=== PATIENT | female | born 1975 | race Caucasian/White ===

== ENCOUNTER 2024-03-31 17:00 | Emergency (ER) | payer MEDICAID, SELFPAY ==
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
[2024-03-31] MEDS: BACITRACIN OINT 1 GM PACKET TOP (17:29)
[2024-03-31 17:30] VITALS: PULSE 68; RESP 18; O2SAT 89
[2024-03-31 17:37] VITALS: BP 149/84; PULSE 65; RESP 16; TEMP 36.6; O2SAT 98
== END 2024-03-31 17:37 | disposition left against medical advice (07) ==
LOC: SERX 17:34
PROVIDERS: Emergency Provider Emergency Medicine; PCP Internal Medicine
DX: T22.011A Burn of unspecified degree of right forearm, initial encounter (principal); E11.9 Type 2 diabetes mellitus without complications; I10 Essential (primary) hypertension; E78.5 Hyperlipidemia, unspecified; Z53.29 Procedure and treatment not carried out because of patient's decision for other reasons; X08.8XXA Exposure to other specified smoke, fire and flames, initial encounter
CPT/HCPCS: 99281; A9270

== ENCOUNTER → 2024-04-07 | Outpatient (CLI) | payer MEDICAID, SELFPAY ==
--- NOTE | 2024-04-07 14:00 | XR_ITS ---
Examination: Abdomen sonogram, complete Date and time of exam: April 07, 2024 1419 hours INDICATIONS: Right upper abdominal pain mid abdominal pain beginning 6 months ago. Technique: Multiple real-time grayscale transabdominal sonographic images of the abdomen have been obtained. Findings: Absent gallbladder Common bile duct 0.8 cm no stones Pancreatic head 1.6 cm Aorta not enlarged Liver 19.0 cm fatty liver Normal hepatopedal portal venous oh Patent IVC Right kidney 10.3 cm renal cortex 1.0 cm Hyperechoic mass with shadowing in the upper pole 18 x 21 x 21 mm Left kidney 10.6 cm renal cortex 1.6 cm Multiple cysts, the largest in the upper pole 13 mm No hydronephrosis Spleen 10.9 cm IMPRESSION: Recommend CTA abdomen pelvis post contrast follow-up to exclude 18 x 21 x 21 mm angiomyolipoma upper pole right kidney
== END | disposition home or self-care (01) ==
LOC: CDIM 13:55
PROVIDERS: Referring Provider Internal Medicine Gastroenterology; Visit Provider Internal Medicine Gastroenterology
DX: R10.9 Unspecified abdominal pain (principal)
CPT/HCPCS: 76700

== ENCOUNTER 2024-06-11 13:15 | Emergency (ER) | payer MEDICAID, SELFPAY ==
[2024-06-11 13:16] VITALS: BMI 38.7
[2024-06-11 13:29] VITALS: BP 116/73; PULSE 61; RESP 18; TEMP 36.8; O2SAT 95
--- NOTE | 2024-06-11 13:32 | XR_ITS ---
Examination: Wrist, right 3 views Technique: Wrist AP, oblique, lateral 3 views Date and time of exam: June 11, 2024 1358 hrs. Indications: Onset right wrist pain today No fracture No dislocation No foreign body Impression: No acute fracture
--- NOTE | 2024-06-11 13:32 | PD.EDHAND ---
Upper Extremity Injury RME/HPI General Chief Complaint: Hand/Wrist Problems Stated Complaint: UNABLE TO MOVE RIGHT WRIST TODAY,UNKNOWN INJURY Time Seen by Provider: 06/11/24 13:31 Arrival date/time: 06/11/24 13:15 49-year-old female presents department today complaints of right wrist pain patient reports no definite injury but she remembers opening a Gatorade yesterday which caused her to develop pain in the right wrist Limitations: no limitations Related Data Home Medications ?Medication ?Instructions ?Recorded ?Confirmed lisinopril 20 mg tablet 20 mg PO QDAY #0 tabs 10/10/14 05/19/20 mirtazapine 45 mg tablet 45 mg PO HS ##30 03/24/17 05/19/20 sitagliptin phosphate 100 mg 100 mg PO QDAY ##30 03/24/17 05/19/20 tablet (Januvia) aspirin 81 mg tablet,delayed 81 mg PO QDAY 04/16/18 05/19/20 release (Aspir-Low) atorvastatin 40 mg tablet 80 mg PO QDAY 04/16/18 05/19/20 fluoxetine 20 mg capsule (Prozac) 60 mg PO QDAY 04/16/18 05/19/20 metformin 500 mg tablet,extended 500 mg PO QPM 04/16/18 05/19/20 release 24 hr chlorthalidone 50 mg tablet 50 mg PO QDAY 04/24/18 05/19/20 fluticasone furoate 200 1 inh inhalation QDAY 04/24/18 05/19/20 mcg/actuation blister powder for inhalation (Arnuity Ellipta) levothyroxine 50 mcg tablet 50 mcg PO QDAY 04/24/18 05/19/20 hydrocodone 10 mg-acetaminophen 1 tab PO Q8H PRN Pain 05/19/20 05/19/20 325 mg tablet Previous Rx's ?Medication ?Instructions ?Recorded potassium chloride 20 mEq 20 meq PO QDAY #7 tabs 04/24/18 tablet,extended release(part/cryst) meloxicam 7.5 mg tablet 7.5 mg PO QDAY #30 tabs 07/23/18 fluconazole 150 mg tablet 150 mg PO .x1 #1 tab 12/12/19 (Diflucan) nystatin 100,000 unit/gram topical 1 applic topical BID #60 grams 12/12/19 cream cephalexin 500 mg capsule 500 mg PO QID #28 caps 05/19/20 ibuprofen 800 mg tablet 800 mg PO TID PRN pain #30 tabs 01/23/21 hydrocodone 5 mg-acetaminophen 325 1 tab PO TID PRN pain #10 tabs 09/18/21 mg tablet loperamide 2 mg capsule (Imodium 2 mg PO QID PRN loose stool #10 09/18/21 A-D) caps Allergies Allergy/AdvReac Type Severity Reaction Status Date / Time morphine AdvReac Severe Palpitation Verified 06/11/24 13:18 s Review of Systems Review of Systems Systems Reviewed: All systems reviewed, normal except as documented Constitutional Constitutional: Reports system reviewed and no additional complaints, except as documented, Denies fever(s) and Denies headache(s) Eyes Eyes: Reports system reviewed and no additional complaints, except as documented and Denies blurry vision ENT Ears, Nose, Mouth, and Throat: Reports system reviewed and no additional complaints, except as documented, Denies headache(s), Denies nasal congestion and Denies nasal discharge Cardiovascular Cardiovascular: Reports system reviewed and no additional complaints, except as documented, Denies chest pain and Denies dyspnea Respiratory Respiratory: Reports system reviewed and no additional complaints, except as documented, Denies chest congestion, Denies cough and Denies dyspnea Gastrointestinal Gastrointestinal: Reports system reviewed and no additional complaints, except as documented and Denies abdominal pain Musculoskeletal Musculoskeletal: Reports system reviewed and no additional complaints, except as documented, Reports arthralgias, Denies deformity and Denies joint swelling Integumentary/Breasts Skin/Breast: Reports system reviewed and no additional complaints, except as documented and Denies rash Neurologic Neurologic: Reports system reviewed and no additional complaints, except as documented, Reports as per HPI and Denies headache(s) Past Medical History Past Medical History NEUROLOGIC: Positive Cerebrovascular Accident and Seizures CARDIAC: Positive Hypercholesterolemia and Hypertension; Negative Cardiac Disorders or Congestive Heart Failure RESPIRATORY: Positive Chronic Obstructive Pulmonary Disease (COPD), Asthma and Sleep Apnea GENITOURINARY: Negative Renal Disease ENDOCRINE: Positive Diabetes Mellitus Type 2; Negative Diabetes Mellitus Type 1 HEMATOLOGIC: Negative Sickle Cell Disease PSYCHO/SOCIAL: Positive Anxiety Surgical History SURGICAL: Positive Section Social History SMOKING STATUS: Current every day smoker SUBSTANCE USE: does not use ED Exam General Limitations: Present no limitations General appearance: Present alert and in no apparent distress Head Head exam: Present atraumatic, normocephalic and normal inspection Eye Eye exam: Present normal appearance, PERRL and EOMI ENT ENT exam: Present normal exam, normal oropharynx and mucous membranes moist Neck Neck exam: Present normal inspection, full ROM and trachea midline Chest Chest inspection: Present normal inspection and symmetric chest wall rise Respiratory Respiratory exam: Present normal lung sounds bilaterally Cardiovascular Cardiovascular exam: Present regular rate, normal rhythm and normal heart sounds Abdominal Exam Abdominal exam: Present soft and normal bowel sounds Extremities Exam Extremities exam: Present full ROM, tenderness (Right hand pain) and normal capillary refill; Absent joint swelling Back Exam Back exam: Present normal inspection and full ROM Neurological Exam Neurological exam: Present alert, oriented X3 and CN II-XII intact Psychiatric Psychiatric exam: Present normal affect and normal mood Skin Skin exam: Present warm, dry, intact and normal color Course Quality Measures none Orders Category Date Time Status XR wrist comp RT min 3V Stat Exams 06/11/24 13:32 Completed Vital Signs Vital signs: Vital Signs Temperature 98.2 F 06/11/24 13:29 Pulse Rate 61 06/11/24 13:29 Respiratory Rate 18 06/11/24 13:29 Blood Pressure 116/73 06/11/24 13:29 Pulse Oximetry (%) 95 06/11/24 13:29 Oxygen Delivery Method Room Air 06/11/24 13:29 O2 saturation 95% room air within normal notes Extremity Injury MDM Narrative MDM Narrative:: 49-year-old female presents department today complaints of right wrist pain patient reports no definite injury but she remembers opening a Gatorade yesterday which caused her to develop pain in the right wrist On exam patient is no bruising or swelling patient does have full range of motion no deformity noted X-ray obtained no acute fracture dislocation noted Patient discharged home in no distress to follow-up with primary care doctor in the next 24 to 48 hours and for any worsening symptoms to return to the ER immediately Patient data External records reviewed:: [facility] previous records Clinical information provided by:: patient Social determinants that could affect healthcare access:: none Patient has the following chronic illnesses:: None How is presenting disease/condition affected by chronic disease/condition?: no chronic disease Evaluation data The following diagnostics were reviewed and interpreted by me:: radiology exam(s) Lab and/or radiology exams considered but not ordered:: Radiology obtain Interpretation Summary: Reviewed by me Medications / Prescriptions Medications or Prescriptions considered but not ordered:: Given Medication administrations:: Given Consultations Consultation(s) initiated? (list below): No Diagnosis Upper Extremity Injury Differential Diagnosis: sprain and strain of wrist and fracture of wrist Most likely diagnosis given after review of the tests above:: Wrist sprain Admission Indicated Admission indicated?: not indicated Admission Request Was there a request for admission?: No Disposition Plan Disposition Plan: Discharge Discharge Attestation Discharge Attestation: The patient and all family members were given an opportunity to ask questions and understood the discharge instructions. Discharge instructions specifically effects, indications for sooner follow up or return to the emergency department, and the expected course of current diagnosis. Patient condition: Stable Discharge Plan Plan Patient Disposition: HOME (Self Care) Disposition Comment: Stable Prescriptions/Referrals Prescriptions/Med Rec: No Action lisinopril 20 MG tablet 20 mg PO QDAY Qty: 0 mirtazapine 45 MG tablet 45 mg PO HS Qty: 30 Januvia 100 MG tablet 100 mg PO QDAY Qty: 30 chlorthalidone 50 mg Tablet 50 mg PO QDAY levothyroxine 50 mcg Tablet 50 mcg PO QDAY Arnuity Ellipta 200 mcg/actuation Blister With Device 1 inh INHALATION QDAY potassium chloride 20 mEq tablet,ER particles/crystals 20 meq PO QDAY Qty: 7 0RF ibuprofen 800 mg tablet 800 mg PO TID PRN (Reason: pain) Qty: 30 0RF atorvastatin 40 mg Tablet 80 mg PO QDAY aspirin [Aspir-Low] 81 mg Tablet,Delayed Release (Dr/Ec) 81 mg PO QDAY fluoxetine [Prozac] 20 mg Capsule 60 mg PO QDAY metformin 500 mg Tablet Extended Release 24 Hr 500 mg PO QPM meloxicam 7.5 mg tablet 7.5 mg PO QDAY Qty: 30 0RF fluconazole [Diflucan] 150 mg tablet 150 mg PO .x1 Qty: 1 0RF nystatin 100,000 unit/gram cream 1 applic topical BID Qty: 60 0RF hydrocodone-acetaminophen [[place]] 10-325 mg Tablet 1 tab PO Q8H PRN (Reason: Pain) cephalexin 500 mg capsule 500 mg PO QID Qty: 28 0RF hydrocodone-acetaminophen 5-325 mg tablet 1 tab PO TID MDD 3 PRN (Reason: pain) Qty: 10 0RF loperamide [Imodium A-D] 2 mg capsule 2 mg PO QID PRN (Reason: loose stool) Qty: 10 0RF Rx Instructions: No more than 8 mg per 24 hour period Referrals: Jacqui Bustillos MD [Primary Care Provider] - In 1 week Problem List Clinical Impression: Acute wrist pain Patient/Caregiver Discharge Instructions Education Materials: ED Arthralgia Additional Instructions: Please follow up with your primary care doctor in the next 24-48hrs for any worsening symptoms return here immediately Print Language: Macedonian Stand Alone Forms: Mami Award Info., Patient Portal Info Letter PA/RANGE MOUNTER Supervising Physician PA/RANGE MOUNTER Supervising Physician: Dr Powell
[2024-06-11 14:46] VITALS: BP 131/75; PULSE 63; RESP 18; TEMP 36.8; O2SAT 96
== END 2024-06-11 14:47 | disposition home or self-care (01) ==
PROVIDERS: Emergency Provider Emergency Medicine; PCP Internal Medicine
DX: M25.531 Pain in right wrist (principal)
CPT/HCPCS: 73110; 99283

== ENCOUNTER 2024-06-29 06:17 | Emergency (ER) | payer MEDICAID, SELFPAY ==
[2024-06-29] VITALS (17 sets, daily range): BP systolic 81–127; BP diastolic 64–107; PULSE 102–138; RESP 19–33; TEMP 36.7–38.1; O2SAT 89–95; BMI 44.9
--- NOTE | 2024-06-29 06:57 | XR_ITS ---
Examination: CT abdomen with intravenous contrast CT pelvis with intravenous contrast 2-D coronal reconstructions 2-D sagittal reconstructions Date and time of exam:June 29, 2024 1049 hours INDICATIONS: Generalized abdominal pain and tenderness today COMPARISON: September 18, 2021.. CTDI: vol (mGy) 13.3 DLP: (mGycm) 800 Technique: Multiple axial sections of the abdomen and pelvis have been obtained. 64 slice high-resolution scanner used. 3 mm axial sections have been obtained, post intravenous injection 60 cc [id number] 2-D sagittal, coronal reconstructions obtained. Low dose protocols were performed. One or more of the following dose reduction techniques were used; automated exposure control, adjustment of the mA and/or KV according to patient size, use of iterative reconstruction technique. Findings: Cirrhosis, liver irregular in contour Mild ascites Absent gallbladder Spleen not enlarged No pancreatic mass Significant scarring right kidney Aorta normal size Fluid distended small bowel loops in the left abdomen Diffuse wall thickening involving the colon Atrophic uterus Bladder intact IMPRESSION: Cirrhosis Mild ascites Significant scarring right kidney Hepatic colopathy enteropathy pattern
--- NOTE | 2024-06-29 06:59 | PD.EDABDPN ---
ED Abdominal Pain RME/HPI General Chief Complaint: Abdominal Pain Stated complaint: ABDOMINAL PAIN, VOMITING AND DIARRHEA Time seen by provider: 06/29/24 06:52 Arrival date/time: 06/29/24 06:17 Limitations: no limitations RME / HPI RME / HPI narrative: 49 year old female with history lupus, hypertension, diabetes, COPD presents to the ED for evaluation of intermittent abdominal pain beginning 3 days ago. Describes pain as aching in sensation that is located everywhere , rating 8/10 in severity. Accompanied by nausea, nonbloody vomiting, and nonbloody diarrhea. States in the last 24 hours she is vomiting every hour and has had 3 episodes of diarrhea. Mentioned she had experienced similar n/v/d years ago and diagnosed with the stomach flu although pain was not as severe. No chronic GI history reported. Denies fevers, chills, chest pain, cough, shortness of breath, or urinary symptoms. Abdominal surgeries include cholecystectomy. Related Data Home Medications ?Medication ?Instructions ?Recorded ?Confirmed lisinopril 20 mg tablet 20 mg PO QDAY #0 tabs 10/10/14 05/19/20 mirtazapine 45 mg tablet 45 mg PO HS ##30 03/24/17 05/19/20 sitagliptin phosphate 100 mg 100 mg PO QDAY ##30 03/24/17 05/19/20 tablet (Januvia) aspirin 81 mg tablet,delayed 81 mg PO QDAY 04/16/18 05/19/20 release (Aspir-Low) atorvastatin 40 mg tablet 80 mg PO QDAY 04/16/18 05/19/20 fluoxetine 20 mg capsule (Prozac) 60 mg PO QDAY 04/16/18 05/19/20 metformin 500 mg tablet,extended 500 mg PO QPM 04/16/18 05/19/20 release 24 hr chlorthalidone 50 mg tablet 50 mg PO QDAY 04/24/18 05/19/20 fluticasone furoate 200 1 inh inhalation QDAY 04/24/18 05/19/20 mcg/actuation blister powder for inhalation (Arnuity Ellipta) levothyroxine 50 mcg tablet 50 mcg PO QDAY 04/24/18 05/19/20 hydrocodone 10 mg-acetaminophen 1 tab PO Q8H PRN Pain 05/19/20 05/19/20 325 mg tablet Previous Rx's ?Medication ?Instructions ?Recorded potassium chloride 20 mEq 20 meq PO QDAY #7 tabs 04/24/18 tablet,extended release(part/cryst) meloxicam 7.5 mg tablet 7.5 mg PO QDAY #30 tabs 07/23/18 fluconazole 150 mg tablet 150 mg PO .x1 #1 tab 12/12/19 (Diflucan) nystatin 100,000 unit/gram topical 1 applic topical BID #60 grams 12/12/19 cream cephalexin 500 mg capsule 500 mg PO QID #28 caps 05/19/20 ibuprofen 800 mg tablet 800 mg PO TID PRN pain #30 tabs 01/23/21 hydrocodone 5 mg-acetaminophen 325 1 tab PO TID PRN pain #10 tabs 09/18/21 mg tablet loperamide 2 mg capsule (Imodium 2 mg PO QID PRN loose stool #10 09/18/21 A-D) caps ciprofloxacin HCl 500 mg tablet 500 mg PO BID 5 days #10 tabs 06/29/24 (Cipro) loperamide 2 mg capsule (Imodium 2 mg PO Q6H PRN loose stool #14 06/29/24 A-D) caps metronidazole 500 mg tablet 500 mg PO BID #10 tabs 06/29/24 metronidazole 500 mg tablet 500 mg PO BID #20 tabs 06/29/24 ondansetron 4 mg disintegrating 4 mg PO Q8H 4 days #14 tabs 06/29/24 tablet ondansetron 4 mg disintegrating 4 mg PO TID PRN nausea and 06/29/24 tablet vomiting 4 days #30 tabs polyethylene glycol 3350 17 gram 17 g PO BID #30 ea 06/29/24 oral powder packet (Miralax) sulfamethoxazole 800 1 tab PO Q12H #20 tabs 06/29/24 mg-trimethoprim 160 mg tablet (Bactrim DS) Allergies Allergy/AdvReac Type Severity Reaction Status Date / Time morphine AdvReac Severe Palpitation Verified 06/11/24 13:18 s Review of Systems Review of Systems Narrative Review of Systems: GEN: No fever, no chills, no weight loss EYES: No discharge, no visual changes, no pain HEENT: No ear pain, no congestion, no sore throat PULM: No shortness of breath, no cough, no congestion CV: No chest pain, no dyspnea on exertion, no palpitations GI: +n/v/d, + pain, no constipation : No frequency, no urgency, no dysuria MUSC/SKEL: No joint pain, no back pain SKIN: No rash NEURO: No weakness, no headache Past Medical History Past Medical History NEUROLOGIC: Positive Cerebrovascular Accident and Seizures CARDIAC: Positive Hypercholesterolemia and Hypertension RESPIRATORY: Positive Chronic Obstructive Pulmonary Disease (COPD), Asthma and Sleep Apnea ENDOCRINE: Positive Diabetes Mellitus Type 2 PSYCHO/SOCIAL: Positive Anxiety Surgical History SURGICAL: Positive Section Social History SMOKING STATUS: Current every day smoker SUBSTANCE USE: does not use ED Exam General Limitations: Present no limitations General appearance: Present alert Head Head exam: Present atraumatic, normocephalic and normal inspection Eye Eye exam: Present normal appearance, PERRL and EOMI ENT ENT exam: Present normal exam, normal oropharynx and mucous membranes moist Neck Neck exam: Present normal inspection, full ROM and trachea midline Chest Chest inspection: Present normal inspection and symmetric chest wall rise Respiratory Respiratory exam: Present normal lung sounds bilaterally Cardiovascular Cardiovascular exam: Present regular rate, normal rhythm and normal heart sounds Abdominal Exam Abdominal exam: Present soft, normal bowel sounds and other (Generalized abdominal tenderness) Extremities Exam Extremities exam: Present normal inspection and full ROM Back Exam Back exam: Present normal inspection and full ROM Neurological Exam Neurological exam: Present alert, oriented X3 and CN II-XII intact Psychiatric Psychiatric exam: Present normal affect and normal mood Skin Skin exam: Present warm, dry, intact and normal color Course Quality Measures none Orders Category Date Time Status CT Screening NOW Care 06/29/24 06:57 Active In and Out Catheter X1 Care 06/29/24 06:55 Completed Insert IV STAT Care 06/29/24 06:[address] abdomen pelvis w con Stat Exams 06/29/24 06:57 Completed Amylase Stat Lab 06/29/24 06:10 Completed CBC Stat Lab 06/29/24 06:10 Completed Comprehensive Metabolic Panel Stat Lab 06/29/24 06:10 Completed Lipase Stat Lab 06/29/24 06:10 Completed Magnesium Stat Lab 06/29/24 06:10 Completed Prothrombin Time with INR Stat Lab 06/29/24 06:10 Completed Urinalysis Stat Lab 06/29/24 09:16 Completed HYDROmorphone INJ [Dilaudid Inj] Med 06/29/24 06:57 Discontinued 1 mg IVP X1 ONE HYDROmorphone INJ [Dilaudid Inj] Med 06/29/24 10:35 Discontinued 1 mg IVP X1 ONE HYDROmorphone INJ [Dilaudid Inj] Med 06/29/24 15:48 Discontinued 1 mg IVP X1 ONE Magnesium Sulfate 4 GM Ivpb [Magnesium Sulfate Ivpb] Med 06/29/24 11:15 Discontinued 4 gm in 50 ml IV X1 Ondansetron Inj [Zofran Inj] Med 06/29/24 06:55 Active 4 mg IV Q1H PRN Potassium Chloride [K-Dur] Med 06/29/24 11:00 Discontinued 40 meq PO Q1H Sodium Chloride 0.9% 1000 ml [Ns] 1,000 ml Med 06/29/24 06:55 Discontinued IV 999 mls/hr cefTRIAXone [Rocephin] 2 gm Med 06/29/24 15:56 Active SODIUM CHLORIDE 0.9% (Popper) [Ns 0.9% (P)] 50 ml IV X1 Vital Signs Vital signs: Vital Signs Temperature 98.0 F 06/29/24 06:22 Pulse Rate 113 H 06/29/24 06:22 Respiratory Rate 20 06/29/24 06:22 Blood Pressure 82/67 L 06/29/24 06:22 Pulse Oximetry (%) 95 06/29/24 06:22 Oxygen Delivery Method Room Air 06/29/24 06:22 Pulse ox is 95% on room air which is adequate. Abdominal Pain MDM MDM Narrative MDM Narrative:: Angelic Mendenhall am scribing for and in the presence of Dr. Bell. 0654: Plan for abdominal CT to rule out acute appendicitis, diverticulitis, pancreatitis. 49 year old female presented to the ED for 3-days of abdominal pain with n/v/d. Labs were reviewed and was given magnesium and potassium. Patient will be discharged home, diagnosed with Gastroenteritis. Will DC patient home with Imodium, Zofran, Cipro, and Flagyl. Patient workup came back negative for CAT scan abdomen pelvis Negative for CBC chemistry for any sort of severe inflammation There is no LYNN UTI Patient was managed with pain medications and IV fluids and antinausea medication Patient be discharged on Zofran and Imodium about adding Cipro and Flagyl to reduce her abdominal symptoms Plan assessment Acute gastroenteritis Plan As above Bactrim and Flagyl instead of Cipro and Flagyl MiraLAX for the possibility of diverticulitis Zofran for the nausea and vomiting Follow-up with your MD Patient data External records reviewed:: [facility] previous records (I reviewed ED visit on 06/11/2024 for wrist pain. ) Clinical information provided by:: patient Social determinants that could affect healthcare access:: none Patient has the following chronic illnesses:: lupus, hypertension, diabetes, COPD How is presenting disease/condition affected by chronic disease/condition?: exacerbated by Evaluation data The following diagnostics were reviewed and interpreted by me:: lab results and radiology exam(s) Lab and/or radiology exams considered but not ordered:: None Interpretation Summary: Ordering Physician: Aranza Bell MD Date of Service: 06/29/24 Procedure(s): CT abdomen pelvis w con Accession Number(s): [id number] cc: Aranza Bell MD; Jacqui Bustillos MD; Alhaji Angelo MD~ Examination: CT abdomen with intravenous contrast CT pelvis with intravenous contrast 2-D coronal reconstructions 2-D sagittal reconstructions Date and time of exam:June 29, 2024 1049 hours INDICATIONS: Generalized abdominal pain and tenderness today COMPARISON: September 18, 2021.. CTDI: vol (mGy) 13.3 DLP: (mGycm) 800 Technique: Multiple axial sections of the abdomen and pelvis have been obtained. 64 slice high-resolution scanner used. 3 mm axial sections have been obtained, post intravenous injection 60 cc [id number] 2-D sagittal, coronal reconstructions obtained. Low dose protocols were performed. One or more of the following dose reduction techniques were used; automated exposure control, adjustment of the mA and/or KV according to patient size, use of iterative reconstruction technique. Findings: Cirrhosis, liver irregular in contour Mild ascites Absent gallbladder Spleen not enlarged No pancreatic mass Significant scarring right kidney Aorta normal size Fluid distended small bowel loops in the left abdomen Diffuse wall thickening involving the colon Atrophic uterus Bladder intact IMPRESSION: Cirrhosis Mild ascites Significant scarring right kidney Hepatic colopathy enteropathy pattern Dictated By: Alhaji Angelo MD Signed By: <Electronically signed by Alhaji Angelo MD in [place]> 06/29/24 1044 Medications / Prescriptions Medications or Prescriptions considered but not ordered:: None Medication administrations:: Medication Administration History Ceftriaxone Sodium 2 gm/ (Sodium Chloride) 50 mls @ 100 mls/hr IV X1 ONE Stop: 06/29/24 16:25 Ondansetron HCl (Ondansetron Inj 2 Mg/Ml Inj 2 Ml) 4 mg IV Q1H PRN PRN Reason: PERSISTENT NAUSEA OR VOMITING Last Admin: 06/29/24 10:58 Dose: 4 mg Documented By: Admin: 06/29/24 07:15 Dose: 4 mg Documented By: SHAD Discontinued Medications Hydromorphone HCl (Hydromorphone Inj 2 Mg/Ml Vial) 1 mg IVP X1 ONE Stop: 06/29/24 06:58 Last Admin: 06/29/24 07:16 Dose: 1 mg Documented By: SHAD Hydromorphone HCl (Hydromorphone Inj 2 Mg/Ml Vial) 1 mg IVP X1 ONE Stop: 06/29/24 10:36 Last Admin: 06/29/24 10:58 Dose: 1 mg Documented By: SHAD Hydromorphone HCl (Hydromorphone Inj 2 Mg/Ml Vial) 1 mg IVP X1 ONE Stop: 06/29/24 15:49 Sodium Chloride (Ns) 1,000 mls @ 999 mls/hr IV .Q1H1M ONE Stop: 06/29/24 07:55 Last Infusion: 06/29/24 08:18 Dose: Infused Documented By: Admin: 06/29/24 07:17 Dose: 999 mls/hr Documented By: SHAD Magnesium Sulfate (Magnesium Sulfate Ivpb) 4 gm in 50 mls @ 12.5 mls/hr IV X1 ONE Stop: 06/29/24 15:14 Last Admin: 06/29/24 12:37 Dose: Not Given Documented By: SHAD Non-Admin Reason: Duplicate Medication on eMAR Potassium Chloride (Potassium Chloride 20 Meq Tabcr) 40 meq PO Q1H JOAQUIN Stop: 06/29/24 13:01 Last Admin: 06/29/24 13:59 Dose: 40 meq Documented By: Admin: 06/29/24 12:35 Dose: 40 meq Documented By: Admin: 06/29/24 11:13 Dose: 40 meq Documented By: SHAD See above Consultations Consultation(s) initiated? (list below): No Diagnosis Differential diagnosis abdominal pain: abdominal pain, acute appendicitis, calculus of kidney, diverticulitis, gastroenteritis and pancreatitis Most likely diagnosis given after review of the tests above:: Gastroenteritis Admission Indicated Admission indicated?: not indicated Admission Request Was there a request for admission?: No Disposition Plan Disposition Plan: Discharge Discharge Attestation Discharge Attestation: The patient and all family members were given an opportunity to ask questions and understood the discharge instructions. Discharge instructions specifically effects, indications for sooner follow up or return to the emergency department, and the expected course of current diagnosis. Patient condition: Stable Discharge Plan Plan Patient Disposition: HOME (Self Care) Patient condition on transfer: Stable Prescriptions/Referrals Prescriptions/Med Rec: New ciprofloxacin HCl [Cipro] 500 mg tablet 500 mg PO BID 5 Days Qty: 10 0RF metronidazole 500 mg tablet 500 mg PO BID Qty: 10 0RF ondansetron 4 mg tablet,disintegrating 4 mg PO Q8H 4 Days Qty: 14 0RF loperamide [Imodium A-D] 2 mg capsule 2 mg PO Q6H PRN (Reason: loose stool) Qty: 14 0RF sulfamethoxazole-trimethoprim [Bactrim DS] 800-160 mg tablet 1 tab PO Q12H Qty: 20 0RF metronidazole 500 mg tablet 500 mg PO BID Qty: 20 0RF polyethylene glycol 3350 [Miralax] 17 gram powder in packet 17 g PO BID Qty: 30 0RF ondansetron 4 mg tablet,disintegrating 4 mg PO TID PRN (Reason: nausea and vomiting) 4 Days Qty: 30 0RF No Action lisinopril 20 MG tablet 20 mg PO QDAY Qty: 0 mirtazapine 45 MG tablet 45 mg PO HS Qty: 30 Januvia 100 MG tablet 100 mg PO QDAY Qty: 30 chlorthalidone 50 mg Tablet 50 mg PO QDAY levothyroxine 50 mcg Tablet 50 mcg PO QDAY Arnuity Ellipta 200 mcg/actuation Blister With Device 1 inh INHALATION QDAY potassium chloride 20 mEq tablet,ER particles/crystals 20 meq PO QDAY Qty: 7 0RF ibuprofen 800 mg tablet 800 mg PO TID PRN (Reason: pain) Qty: 30 0RF atorvastatin 40 mg Tablet 80 mg PO QDAY aspirin [Aspir-Low] 81 mg Tablet,Delayed Release (Dr/Ec) 81 mg PO QDAY fluoxetine [Prozac] 20 mg Capsule 60 mg PO QDAY metformin 500 mg Tablet Extended Release 24 Hr 500 mg PO QPM meloxicam 7.5 mg tablet 7.5 mg PO QDAY Qty: 30 0RF fluconazole [Diflucan] 150 mg tablet 150 mg PO .x1 Qty: 1 0RF nystatin 100,000 unit/gram cream 1 applic topical BID Qty: 60 0RF hydrocodone-acetaminophen [[place]] 10-325 mg Tablet 1 tab PO Q8H PRN (Reason: Pain) cephalexin 500 mg capsule 500 mg PO QID Qty: 28 0RF hydrocodone-acetaminophen 5-325 mg tablet 1 tab PO TID MDD 3 PRN (Reason: pain) Qty: 10 0RF loperamide [Imodium A-D] 2 mg capsule 2 mg PO QID PRN (Reason: loose stool) Qty: 10 0RF Rx Instructions: No more than 8 mg per 24 hour period Referrals: Jacqui Bustillos MD [Primary Care Provider] - In 1 week Problem List Clinical Impression: Gastroenteritis, Urinary tract infectious disease Patient/Caregiver Discharge Instructions Discharge Activity: activity as tolerated Education Materials: Urinary Tract Infections in Women, ED Gastroenteritis, Noninfectious, ED CYSTITIS Female Adult Print Language: Syrian Stand Alone Forms: Mami Award Info., Patient Portal Info Letter
[2024-06-29] MEDS: ONDANSETRON INJ 2 MG/ML INJ 2 ML 4 MG IV ×3 (07:15→16:18)
[2024-06-29] MEDS: HYDROmorphone INJ 2 MG/ML VIAL 1 MG IVP ×3 (07:16→16:18)
[2024-06-29] MEDS: SODIUM CHLORIDE 0.9% 1000 ML 1,000 ML 999 ML IV (07:17)
--- NOTE | 2024-06-29 07:35 | PC.NURSE ---
Patient is alert and oriented, sitting in gurney, noted sweating per patient due to pain. Patient with c/o upper mid abd pain x4 days worsened after eating, now with nausea also. Patient and family updated with plan of care for obtaining CT scan and medicating for pain relief. Patient call light within reach.
[2024-06-29 08:12] LABS: Alanine Aminotransferase 16 U/L (10-49); Albumin, Serum 4.1 gm/dL (3.5-5.0); Albumin/Globulin Ratio 1.4 (1.2-2.2); Alkaline Phosphatase 74 U/L (46-116); Amylase < 20 U/L (30-118); Anion Gap 15 (7-16); Aspartate Amino Transferase 15 U/L (0-34); BUN/Creatinine Ratio 18 Ratio (12-20); Bilirubin,Total 0.9 mg/dL (0.3-1.2); Blood Urea Nitrogen 18 mg/dL (9-23); Calcium 9.2 mg/dL (8.3-10.6); Calcium (Corrected) 9.2 mg/dL (8.5-10.1); Carbon Dioxide 17.9 mMol/L (20.0-31.0); Chloride 106 mMol/L (98-107); Estimated Creatinine Clearance 73.3 mL/min (>60); Globulin 2.9 gm/dL (2.3-3.5); Glucose 130 mg/dL (74-106); Lipase 23 U/L (12-53); Magnesium 1.5 mg/dL (1.6-2.6); Osmolality,Calculated 281 (275-295); Sodium 139 mMol/L (136-145); eGFR > 60 See Note
[2024-06-29 08:13] LABS: Potassium 2.6 mMol/L (3.4-5.1)
--- NOTE | 2024-06-29 08:18 | PC.NURSE ---
RN informed patient of need for UA sample, per patient unable to urinate at this time, RN inquired if ok to obtain in and out catheter and patient refused at this time.
[2024-06-29 08:36] LABS: Basophils # (Auto) 0.1 Thou/mm3 (0.0-0.2); Basophils % (Auto) 0 % (0-2.5); Eosinophils % (Auto) 0 % (0-10); Hematocrit 56.3 % (36.0-46.0); Hemoglobin 19.6 g/dL (12.0-16.0); INR 1.4 (0.9-1.3); Immature Granulocytes % (Auto) 0 % (0-0); Immature Granulocytes Auto 0.06 Thou/mm3 (0.00-0.00); Lymphocytes # (Auto) 0.7 Thou/mm3 (1.0-4.8); Lymphocytes % (Auto) 4 % (10-50); Mean Corpuscular HGB Conc 34.8 g/dl (31.0-37.0); Mean Corpuscular Hemoglobin 30.1 pg (25.0-35.0); Mean Corpuscular Volume 87 fL (80-100); Monocytes # (Auto) 0.6 Thou/mm3 (0.0-0.8); Monocytes % (Auto) 4 % (0-12); Neutrophils # (Auto) 13.3 Thou/mm3 (1.8-7.7); Neutrophils % (Auto) 91 % (37-80); Nucleated Red Blood Cell % 0 /100 WBC (0); Platelet Count 471 Thou/mm3 (140-440); Prothrombin Time 14.9 Seconds (9.0-12.2); RDW Standard Deviation 49.2 fL (36.4-46.3); Red Blood Count 6.51 Miln/mm3 (4.00-5.20); White Blood Count 14.7 Thou/mm3 (3.6-11.0)
[2024-06-29 09:30] LABS: Collection Type, Urine Catheter
[2024-06-29 09:50] LABS: Bacteria,Urine 2+; Bilirubin,Urine Negative (Negative); Blood,Urine Negative (Negative); Clarity,Urine Turbid (Clear/Hazy); Color,Urine Yellow (Lt Yel-Yel); Glucose, Urine Negative (Negative); Hyaline Casts,Urine 2 /hpf (0-1); Ketones,Urine Trace (Negative); Leukocyte Esterase,Urine Negative (Negative); Nitrite,Urine Positive (Negative); Protein,Urine 1+ (Neg - Trace); RBC,Urine 7 /hpf (0-3); Specific Gravity,Urine 1.029 (1.001-1.035); Squamous Epithelial Cell,Urine 1 /hpf (0-5); WBC,Urine 11 /hpf (0-5)
[2024-06-29] MEDS: POTASSIUM CHLORIDE 20 mEq TABCR 40 MEQ PO ×3 (11:13→13:59)
[2024-06-29] MEDS: cefTRIAXone 2 GM in SODIUM CHLORIDE 0.9% (Popper) 50 ML IV (16:19)
[2024-06-29] MEDS: SODIUM CHLORIDE 0.9% 500 ML 500 ML 999 ML IV (17:33)
== END 2024-06-29 18:44 | disposition home or self-care (01) ==
PROVIDERS: Emergency Provider Emergency Medicine; PCP Internal Medicine
DX: K52.9 Noninfective gastroenteritis and colitis, unspecified (principal); N39.0 Urinary tract infection, site not specified; I10 Essential (primary) hypertension; E11.9 Type 2 diabetes mellitus without complications; J44.9 Chronic obstructive pulmonary disease, unspecified
CPT/HCPCS: 36415; 74177; 80053; 81001; 82150; 83690; 83735; 85025; 85610; 87015; 87045; 87046; 87493; 87899; 96361; 96365; 96375; 96376; 99285; A4649; J0696; J1171; J2405; J3475; J7030; J7040; Q9967; A9270

== ENCOUNTER 2024-07-05 01:16 | Emergency (ER) | payer MEDICAID, SELFPAY ==
[2024-07-05 01:18] VITALS: PULSE 83; O2SAT 98; BMI 40.6
--- NOTE | 2024-07-05 01:22 | PD.EDABDPN ---
ED Abdominal Pain RME/HPI General Chief Complaint: Abdominal Pain Stated complaint: ABDOMINAL PAIN, DIARRHEA Time seen by provider: 07/05/24 02:00 Arrival date/time: 07/05/24 01:16 RME / HPI RME / HPI narrative: This section includes all my notes and documentations, including HPI, PE, and ED course. Marquis Pulido MD HPI: 49 y/o female with PMH of Obesity, Type II DM, Gall Bladder Disease and SHx of section BIBA from home presents to ED c/o abdominal pain x 6 days. Denies fever or vomiting. Has nausea. Patient was seen here recently and diagnosed with UTI, but believes it may be something else. Patient also saw PCP this morning and was advised to come to ED then. No other complaints. ROS: All negative except as documented in HPI. Physical Exam: General: Alert and oriented. In severe pain. Eyes: Conjunctivae and lids clear. ENT: No nasal congestion. Neck: Supple. Heart: RRR. Lungs: No respiratory distress. Good air movement. No rhonchi, wheezing, rales. Abdomen: Soft with diffuse tenderness, difficult to localize. Normal bowel sounds. No distension. No rebound or guarding. Back: No CVA tenderness. Skin: Warm and dry. Neuro: Alert and oriented X 3. I reviewed EMS notes. I reviewed all diagnostic test results. My review of the Gall Bladder US report is possible perihepatic hematoma. My review of the Abdomen/Pelvis CT report is cirrhosis and ascites. Blood tests and urine tests unremarkable except WBC 20.6. At this point, diagnoses include abdominal pain of unclear etiology. Treatment here included Zofran, Dilaudid, Toradol. Significant improvement noted. Recommended more outpatient workup. Based on my best medical judgment, made decision no further evaluation or treatment indicated at this time. Patient understands and agrees to the discharge instructions customized and printed, see below. Discharge Instructions from Dr. Pulido printed for you: 1. After extensive evaluation, there is no emergency. Such as appendicitis needing urgent surgery. 2. But your diagnoses may include serious conditions. Including cirrhosis and possible perihepatic hematoma. 3. Dilaudid for severe pain. 4. Zofran for nausea/vomiting. For good hydration, increase oral fluid and maintain clear urine. If dark or yellow, increase oral fluid. 5. See a private doctor on 07/06/2024 for recheck and further care. Ask to review all test results and official radiology reports, to make sure you receive all necessary follow-ups and monitoring. To assess for serious intra-abdominal conditions, ask for help with more investigation not available here in the ER. Such as EGD or scoping the stomach, colonoscopy or scoping the colon, and referral to see sports recruiter. 6. Seek immediate medical care with worsening or with any concerns. Marquis Pulido MD Related Data Home Medications ?Medication ?Instructions ?Recorded ?Confirmed lisinopril 20 mg tablet 20 mg PO QDAY #0 tabs 10/10/14 05/19/20 mirtazapine 45 mg tablet 45 mg PO HS ##30 03/24/17 05/19/20 sitagliptin phosphate 100 mg 100 mg PO QDAY ##30 03/24/17 05/19/20 tablet (Januvia) aspirin 81 mg tablet,delayed 81 mg PO QDAY 04/16/18 05/19/20 release (Aspir-Low) atorvastatin 40 mg tablet 80 mg PO QDAY 04/16/18 05/19/20 fluoxetine 20 mg capsule (Prozac) 60 mg PO QDAY 04/16/18 05/19/20 metformin 500 mg tablet,extended 500 mg PO QPM 04/16/18 05/19/20 release 24 hr chlorthalidone 50 mg tablet 50 mg PO QDAY 04/24/18 05/19/20 fluticasone furoate 200 1 inh inhalation QDAY 04/24/18 05/19/20 mcg/actuation blister powder for inhalation (Arnuity Ellipta) levothyroxine 50 mcg tablet 50 mcg PO QDAY 04/24/18 05/19/20 hydrocodone 10 mg-acetaminophen 1 tab PO Q8H PRN Pain 05/19/20 05/19/20 325 mg tablet Previous Rx's ?Medication ?Instructions ?Recorded potassium chloride 20 mEq 20 meq PO QDAY #7 tabs 04/24/18 tablet,extended release(part/cryst) meloxicam 7.5 mg tablet 7.5 mg PO QDAY #30 tabs 07/23/18 fluconazole 150 mg tablet 150 mg PO .x1 #1 tab 12/12/19 (Diflucan) nystatin 100,000 unit/gram topical 1 applic topical BID #60 grams 12/12/19 cream cephalexin 500 mg capsule 500 mg PO QID #28 caps 05/19/20 ibuprofen 800 mg tablet 800 mg PO TID PRN pain #30 tabs 01/23/21 hydrocodone 5 mg-acetaminophen 325 1 tab PO TID PRN pain #10 tabs 09/18/21 mg tablet loperamide 2 mg capsule (Imodium 2 mg PO QID PRN loose stool #10 09/18/21 A-D) caps loperamide 2 mg capsule (Imodium 2 mg PO Q6H PRN loose stool #14 06/29/24 A-D) caps metronidazole 500 mg tablet 500 mg PO BID #10 tabs 06/29/24 metronidazole 500 mg tablet 500 mg PO BID #20 tabs 06/29/24 polyethylene glycol 3350 17 gram 17 g PO BID #30 ea 06/29/24 oral powder packet (Miralax) sulfamethoxazole 800 1 tab PO Q12H #20 tabs 06/29/24 mg-trimethoprim 160 mg tablet (Bactrim DS) hydromorphone 2 mg tablet 2 mg PO .q8 PRN pain #20 tabs 07/05/24 (Dilaudid) ondansetron 4 mg disintegrating 4 mg PO TID PRN nausea and 07/05/24 tablet vomiting 30 days #10 tabs Allergies Allergy/AdvReac Type Severity Reaction Status Date / Time morphine AdvReac Severe Palpitation Verified 06/11/24 13:18 s Review of Systems Review of Systems Systems Reviewed: All systems reviewed, normal except as documented Past Medical History Past Medical History NEUROLOGIC: Positive Cerebrovascular Accident and Seizures CARDIAC: Positive Cardiac Disorders (htn), Hypercholesterolemia and Hypertension RESPIRATORY: Positive Chronic Obstructive Pulmonary Disease (COPD), Asthma and Sleep Apnea GASTROINTESTINAL: Positive Gall Bladder Disease and Obesity MUSCULOSKELETAL: Positive Arthritis ENDOCRINE: Positive Diabetes Mellitus Type 2 PSYCHO/SOCIAL: Positive Anxiety OTHER HISTORY: Positive Autoimmune Disease Surgical History SURGICAL: Positive Abdominal Surgery, Tubal Ligation and Section ED Exam Narrative Physical exam: Refer to HPI above. Course Quality Measures none Orders Category Date Time Status Saline [Insert IV] NOW Care 07/05/24 02:02 Active Straight [In and Out Catheter] X1 Care 07/05/24 02:[address] abdomen pelvis wo con Stat Exams 07/05/24 02:03 Taken US gall bladder Stat Exams 07/05/24 02:03 Taken Alcohol, Blood Medical Stat Lab 07/05/24 02:12 Completed Amylase Stat Lab 07/05/24 02:12 Completed Bilirubin,Direct Stat Lab 07/05/24 02:12 Completed Blood Culture (Lab) Stat Lab 07/05/24 02:12 Received CBC Stat Lab 07/05/24 02:12 Completed CMP [Comprehensive Metabolic Panel] Stat Lab 07/05/24 02:12 Completed CRP [C-Reactive Protein] Stat Lab 07/05/24 02:12 Completed Drug Screen,Urine Stat Lab 07/05/24 02:37 Completed ESR [Sed Rate (ESR)] Stat Lab 07/05/24 02:12 Completed Free T4 (Free Thyroxine) Stat Lab 07/05/24 02:12 Completed HCG Qualitative,Urine Stat Lab 07/05/24 02:37 Completed HCG,Qualitative Serum Stat Lab 07/05/24 02:12 Completed Lactate (Lactic Acid) Stat Lab 07/05/24 02:12 Completed Lipase Stat Lab 07/05/24 02:12 Completed Magnesium Stat Lab 07/05/24 02:12 Completed Path Review Blood Smear Stat Lab 07/05/24 02:12 Completed Procalcitonin Stat Lab 07/05/24 02:12 Completed TSH [Thyroid Stimulating Hormone] Stat Lab 07/05/24 02:12 Completed UA, C/S IF [Urinalysis, C/S if Indicated] Stat Lab 07/05/24 02:37 Completed Urine Culture Stat Lab 07/05/24 02:37 Received HYDROmorphone INJ [Dilaudid Inj] Med 07/05/24 02:02 Discontinued 1 mg IVP X1 ONE HYDROmorphone INJ [Dilaudid Inj] Med 07/05/24 05:18 Once 1 mg IVP X1 ONE Ketorolac Inj [Toradol Inj] Med 07/05/24 02:02 Discontinued 30 mg IVP X1 ONE Ondansetron Inj [Zofran Inj] Med 07/05/24 02:02 Discontinued 4 mg IV X1 ONE Sodium Chloride 0.9% 1000 ml [Ns] 1,000 ml Med 07/05/24 02:02 Discontinued IV 999 mls/hr cefTRIAXone/D5w 1gm IV premix [Rocephin/D5w 1gm IV Med 07/05/24 02:59 Discontinued premix] 1 gm in 50 ml IV X1 Vital Signs Vital signs: Vital Signs Temperature 98.3 F 07/05/24 01:54 Pulse Rate 76 07/05/24 01:54 Respiratory Rate 19 07/05/24 01:54 Blood Pressure 113/75 07/05/24 01:54 Pulse Oximetry (%) 98 07/05/24 01:54 Abdominal Pain MDM MDM Narrative MDM Narrative:: Scribe Attestation: IYessi, stacey scribing for and in the presence of Dr. Pulido. Provider Notation: Although this document has been carefully reviewed, there may still be some phonetic and other typographical errors. These errors are purely grammatical due to imperfections in the software program and should not be construed in any way to compromise the substance of the patient's medical care during this visit. Patient data External records reviewed:: [facility] previous records (Prior ED records from 06/29/24 reviewed. Patient was seen for Gastroenteritis.) Clinical information provided by:: patient and EMS Social determinants that could affect healthcare access:: none Patient has the following chronic illnesses:: Cerebrovascular Accident, Seizures, Hypercholesterolemia, Hypertension, Chronic Obstructive Pulmonary Disease, Asthma, Sleep Apnea, Gall Bladder Disease, Obesity, Arthritis, Diabetes Mellitus Type 2, Anxiety, Autoimmune Disease How is presenting disease/condition affected by chronic disease/condition?: exacerbated by Evaluation data The following diagnostics were reviewed and interpreted by me:: lab results and radiology exam(s) Lab and/or radiology exams considered but not ordered:: None Interpretation Summary: I reviewed all diagnostic test results. My review of the Gall Bladder US report is possible perihepatic hematoma. My review of the Abdomen/Pelvis CT report is cirrhosis and ascites. Blood tests and urine tests unremarkable except WBC 20.6. Medications / Prescriptions Medications or Prescriptions considered but not ordered:: None Medication administrations:: Medication Administration History Hydromorphone HCl (Hydromorphone Inj 2 Mg/Ml Vial) 1 mg IVP X1 ONE Stop: 07/05/24 05:19 Discontinued Medications Hydromorphone HCl (Hydromorphone Inj 2 Mg/Ml Vial) 1 mg IVP X1 ONE Stop: 07/05/24 02:03 Last Admin: 07/05/24 03:18 Dose: 1 mg Documented By: CB Sodium Chloride (Ns) 1,000 mls @ 999 mls/hr IV .Q1H1M ONE Stop: 07/05/24 03:02 Last Infusion: 07/05/24 05:07 Dose: Infused Documented By: Admin: 07/05/24 03:17 Dose: 999 mls/hr Documented By: MELINDA Ceftriaxone Sodium/Dextrose (Rocephin/D5w 1gm Iv Premix) 1 gm in 50 mls @ 100 mls/hr IV X1 ONE Stop: 07/05/24 03:28 Last Infusion: 07/05/24 04:17 Dose: Infused Documented By: Admin: 07/05/24 03:16 Dose: 100 mls/hr Documented By: MELINDA Ketorolac Tromethamine (Ketorolac Inj 30 Mg/Ml Vial) 30 mg IVP X1 ONE Stop: 07/05/24 02:03 Last Admin: 07/05/24 03:17 Dose: 30 mg Documented By: MELINDA Ondansetron HCl (Ondansetron Inj 2 Mg/Ml Inj 2 Ml) 4 mg IV X1 ONE; Protocol Stop: 07/05/24 02:03 Last Admin: 07/05/24 03:16 Dose: 4 mg Documented By: MELINDA IV fluid, Dilaudid, Toradol, Zofran. Consultations Consultation(s) initiated? (list below): No Diagnosis Differential diagnosis abdominal pain: abdominal pain, acute appendicitis, calculus of kidney, constipation, diverticulitis, endometriosis, gastroenteritis, pancreatitis and small bowel obstruction Most likely diagnosis given after review of the tests above:: Abdominal pain of unclear etiology. Admission Indicated Admission indicated?: not indicated Explain why admission is indicated or not indicated:: With significant improvement, there was no indication for admission. Admission Request Was there a request for admission?: No Disposition Plan Disposition Plan: Discharge Discharge Attestation Discharge Attestation: The patient and all family members were given an opportunity to ask questions and understood the discharge instructions. Discharge instructions specifically effects, indications for sooner follow up or return to the emergency department, and the expected course of current diagnosis. Patient condition: Stable Discharge Plan Plan Patient Disposition: HOME (Self Care) Prescriptions/Referrals Prescriptions/Med Rec: New hydromorphone [Dilaudid] 2 mg tablet 2 mg PO .q8 MDD 3 PRN (Reason: pain) Qty: 20 0RF ondansetron 4 mg tablet,disintegrating 4 mg PO TID PRN (Reason: nausea and vomiting) 30 Days Qty: 10 0RF No Action lisinopril 20 MG tablet 20 mg PO QDAY Qty: 0 mirtazapine 45 MG tablet 45 mg PO HS Qty: 30 Januvia 100 MG tablet 100 mg PO QDAY Qty: 30 chlorthalidone 50 mg Tablet 50 mg PO QDAY levothyroxine 50 mcg Tablet 50 mcg PO QDAY Arnuity Ellipta 200 mcg/actuation Blister With Device 1 inh INHALATION QDAY potassium chloride 20 mEq tablet,ER particles/crystals 20 meq PO QDAY Qty: 7 0RF ibuprofen 800 mg tablet 800 mg PO TID PRN (Reason: pain) Qty: 30 0RF atorvastatin 40 mg Tablet 80 mg PO QDAY aspirin [Aspir-Low] 81 mg Tablet,Delayed Release (Dr/Ec) 81 mg PO QDAY fluoxetine [Prozac] 20 mg Capsule 60 mg PO QDAY metformin 500 mg Tablet Extended Release 24 Hr 500 mg PO QPM meloxicam 7.5 mg tablet 7.5 mg PO QDAY Qty: 30 0RF fluconazole [Diflucan] 150 mg tablet 150 mg PO .x1 Qty: 1 0RF nystatin 100,000 unit/gram cream 1 applic topical BID Qty: 60 0RF hydrocodone-acetaminophen [[place]] 10-325 mg Tablet 1 tab PO Q8H PRN (Reason: Pain) cephalexin 500 mg capsule 500 mg PO QID Qty: 28 0RF hydrocodone-acetaminophen 5-325 mg tablet 1 tab PO TID MDD 3 PRN (Reason: pain) Qty: 10 0RF loperamide [Imodium A-D] 2 mg capsule 2 mg PO QID PRN (Reason: loose stool) Qty: 10 0RF Rx Instructions: No more than 8 mg per 24 hour period metronidazole 500 mg tablet 500 mg PO BID Qty: 10 0RF loperamide [Imodium A-D] 2 mg capsule 2 mg PO Q6H PRN (Reason: loose stool) Qty: 14 0RF sulfamethoxazole-trimethoprim [Bactrim DS] 800-160 mg tablet 1 tab PO Q12H Qty: 20 0RF metronidazole 500 mg tablet 500 mg PO BID Qty: 20 0RF polyethylene glycol 3350 [Miralax] 17 gram powder in packet 17 g PO BID Qty: 30 0RF Referrals: Jacqui Bustillos MD [Primary Care Provider] - In 1 week Problem List Clinical Impression: Abdominal pain Patient/Caregiver Discharge Instructions Discharge Activity: activity as tolerated Education Materials: ED Abdominal Pain Unkn Cause Fem Additional Instructions: Discharge Instructions from Dr. Pulido printed for you: 1. After extensive evaluation, there is no emergency. Such as appendicitis needing urgent surgery. 2. But your diagnoses may include serious conditions. Including cirrhosis and possible perihepatic hematoma. 3. Dilaudid for severe pain. 4. Zofran for nausea/vomiting. For good hydration, increase oral fluid and maintain clear urine. If dark or yellow, increase oral fluid. 5. See a private doctor on 07/06/2024 for recheck and further care. Ask to review all test results and official radiology reports, to make sure you receive all necessary follow-ups and monitoring. To assess for serious intra-abdominal conditions, ask for help with more investigation not available here in the ER. Such as EGD or scoping the stomach, colonoscopy or scoping the colon, and referral to see sports recruiter. 6. Seek immediate medical care with worsening or with any concerns. Print Language: Northern Irish Stand Alone Forms: Mami Award Info., Patient Portal Info Letter
[2024-07-05 01:54] VITALS: BP 113/75; PULSE 76; RESP 19; TEMP 36.8; O2SAT 98
--- NOTE | 2024-07-05 02:03 | XR_ITS ---
Examination: CT abdomen and pelvis without contrast. Coronal 3-D reconstructions. Sagittal 2-D reconstructions. Date and time of exam:July 05, 2024 0342 hours Comparison June 29, 2024 INDICATIONS: Abdominal pain diarrhea beginning one week ago CTDI: vol (mGy): 15.5 DLP: (mGycm): 905 Technique: Axial images of the abdomen have been obtained, 3 mm slice thickness Intravenous contrast material has not been administered. Low dose protocols were performed. One or more of the following dose reduction techniques were used; automated exposure control, adjustment of the mA and/or KV according to patient size, use of iterative reconstruction technique. Findings: Liver is irregular in contour with diffuse fatty infiltration Mild ascites Absent gallbladder Hepatomegaly 23 cm No pancreatic mass Bilateral renal scarring, no hydronephrosis or ureteral calculi Diffuse wall thickening involving the colon and small bowel, no obstruction No pelvic mass Urinary bladder intact IMPRESSION: Significant hepatomegaly Cirrhosis Mild ascites Bilateral renal scarring Hepatic colopathy hepatic enteropathy pattern
--- NOTE | 2024-07-05 02:03 | XR_ITS ---
Examination: Abdomen sonogram, Limited Date and time of exam: July 05, 2024 0320 hours INDICATIONS: Abdominal pain beginning 5 days ago Technique: Real-time vail scale transabdominal sonographic images of the upper abdomen obtained. Findings: Absent gallbladder Common bile duct 0.8 cm no stones Pancreatic head 2.3 cm Hepatomegaly 20.6 cm irregular contour, right lobe liver lesion versus perihepatic mass 6.1 x 7.0 cm Normal hepatopedal portal venous flow Patent IVC. IMPRESSION: Absent gallbladder No common bile duct stones Perihepatic fluid versus hepatic mass, recommend contrast enhanced CT examination abdomen and pelvis following
[2024-07-05 02:19] LABS: Lactate (Lactic Acid) 0.9 mMol/L (0.4-2.0)
[2024-07-05 02:21] LABS: Basophils # (Auto) 0.1 Thou/mm3 (0.0-0.2); Basophils % (Auto) 1 % (0-2.5); Eosinophils # (Auto) 0.4 Thou/mm3 (0.0-0.5); Eosinophils % (Auto) 2 % (0-10); Hematocrit 41.2 % (36.0-46.0); Hemoglobin 14.3 g/dL (12.0-16.0); Immature Granulocytes % (Auto) 11 % (0-0); Immature Granulocytes Auto 2.24 Thou/mm3 (0.00-0.00); Lymphocytes # (Auto) 2.5 Thou/mm3 (1.0-4.8); Lymphocytes % (Auto) 12 % (10-50); Mean Corpuscular HGB Conc 34.7 g/dl (31.0-37.0); Mean Corpuscular Hemoglobin 30.6 pg (25.0-35.0); Mean Corpuscular Volume 88 fL (80-100); Monocytes # (Auto) 1.7 Thou/mm3 (0.0-0.8); Monocytes % (Auto) 8 % (0-12); Neutrophils # (Auto) 13.7 Thou/mm3 (1.8-7.7); Neutrophils % (Auto) 66 % (37-80); Nucleated Red Blood Cell % 0 /100 WBC (0); Platelet Count 298 Thou/mm3 (140-440); RDW Standard Deviation 54.4 fL (36.4-46.3); Red Blood Count 4.68 Miln/mm3 (4.00-5.20); White Blood Count 20.6 Thou/mm3 (3.6-11.0)
[2024-07-05 02:48] LABS: Collection Type, Urine Clean Catch
[2024-07-05 03:07] LABS: Bacteria,Urine Rare; Bilirubin,Urine Negative (Negative); Blood,Urine Negative (Negative); Clarity,Urine Clear (Clear/Hazy); Color,Urine Lt-Yellow (Lt Yel-Yel); Culture Indicated,Urine Not Indicated; Glucose, Urine Negative (Negative); Ketones,Urine Negative (Negative); Leukocyte Esterase,Urine Positive (Negative); Nitrite,Urine Negative (Negative); PH,Urine 6.5 (5.0-7.0); Protein,Urine Negative (Neg - Trace); RBC,Urine 2 /hpf (0-3); Specific Gravity,Urine 1.012 (1.001-1.035); Squamous Epithelial Cell,Urine 1 /hpf (0-5); Urobilinogen,Urine Negative mg/dL (0.0-1.0); WBC,Urine 1 /hpf (0-5)
[2024-07-05 03:08] LABS: HCG,Qualitative Serum Negative
[2024-07-05 03:09] LABS: HCG Qualitative,Urine Negative
[2024-07-05] MEDS: cefTRIAXone/D5w 1gm IV premix 1 GM/50 ML BAG IV (03:16)
[2024-07-05] MEDS: ONDANSETRON INJ 2 MG/ML INJ 2 ML 4 MG IV (03:16)
[2024-07-05] MEDS: KETOROLAC INJ 30 MG/ML VIAL IVP (03:17)
[2024-07-05] MEDS: SODIUM CHLORIDE 0.9% 1000 ML 1,000 ML 999 ML IV (03:17)
[2024-07-05] MEDS: HYDROmorphone INJ 2 MG/ML VIAL 1 MG IVP ×2 (03:18→05:49)
[2024-07-05 03:35] LABS: Amphetamine/Methamp Scrn,U Negative (Negative); Barbiturate Screen,Urine Negative (Negative); Benzodiazepines Screen,Urine Negative (Negative); Benzoylecgonine Screen, Ur Negative (Negative); Fentanyl Screen,Urine Positive (Negative); Opiate Screen,Urine Positive (Negative); THC Screen,Urine Negative (Negative)
[2024-07-05 03:38] LABS: Free T4 (Free Thyroxine) 0.87 ng/dL (0.89-1.76); Procalcitonin 0.87 ng/ml (0.0-0.49); Thyroid Stimulating Hormone 8.32 uIU/mL (0.55-4.78)
[2024-07-05 04:06] LABS: Alanine Aminotransferase 32 U/L (10-49); Albumin, Serum 3.2 gm/dL (3.5-5.0); Albumin/Globulin Ratio 1.2 (1.2-2.2); Alcohol, Blood Medical < 3.0 mg/dL (0-10.0); Alkaline Phosphatase 79 U/L (46-116); Anion Gap 8 (7-16); Aspartate Amino Transferase 26 U/L (0-34); BUN/Creatinine Ratio 12 Ratio (12-20); Bilirubin,Direct 0.2 mg/dL (0.0-0.3); Bilirubin,Total 0.4 mg/dL (0.3-1.2); Blood Urea Nitrogen 7 mg/dL (9-23); Calcium 8.9 mg/dL (8.3-10.6); Calcium (Corrected) 9.5 mg/dL (8.5-10.1); Carbon Dioxide 20.5 mMol/L (20.0-31.0); Chloride 103 mMol/L (98-107); Creatinine (Component) 0.6 mg/dL (0.6-1.3); Estimated Creatinine Clearance 119.9 mL/min (>60); Globulin 2.7 gm/dL (2.3-3.5); Glucose 99 mg/dL (74-106); Lipase 52 U/L (12-53); Magnesium 1.6 mg/dL (1.6-2.6); Osmolality,Calculated 260 (275-295); Potassium 3.6 mMol/L (3.4-5.1); Sodium 131 mMol/L (136-145); Total Protein 5.9 gm/dL (5.7-8.2); eGFR > 60 See Note
[2024-07-05 04:17] LABS: Sed Rate (ESR) 73 mm/hr (0-30)
[2024-07-05 04:23] LABS: Amylase 41 U/L (30-118)
--- NOTE | 2024-07-05 05:02 | PRELIM_ITS ---
Gallbladder ultrasound. July 05, 2024 at 0320 hours Clinical history: RUQ tenderness. Comparison: No prior study is available for comparison. Findings: Post cholecystectomy. Common bile duct is 8 mm in diameter, without choledocholithiasis. Pancreas is unremarkable to the extent visualized. Liver is enlarged, 20.6 cm long, with heterogeneous parenchyma and irregular border. Complex large perihepatic fluid versus mass, 6.5 x 7 cm. Main portal vein is a ntegrade. Inferior vena cava is patent. Impression: Hepatomegaly with possible cirrhosis. Complex perihepatic fluid, likely hematoma. Cannot exclude a mass. Recommend contrast enhanced CT and comparison with prior exams. Discussion Details: Results verbally communicated to : Dr. Pulido at 04:48 AM 07/05/2024 Report Electronically Signed By: Evans Jimenez 07/05/2024 5:01:13 AM [EST]
--- NOTE | 2024-07-05 05:10 | PRELIM_ITS ---
CT scan of the abdomen and pelvis without intravenous contrast (axial sections with sagittal and coronal reformats) July 05, 2024 at 0342 hours Clinical History: Abdominal pain. Comparison: None. Findings: Mild atelectasis in bilateral lung bases. Mild pericardial lymphadenopathy. Liver is enlarged, 24 cm long. The spleen, adrenal glands, and pancreas are unremarkable. Moderate ascites. No free intraperitoneal air. Status post cholecystectomy. No urinary tract stone or obstruction is identified. Small farheen wel and colonic fluid levels. Punctate air in urinary bladder, likely iatrogenic. There is no adnexal cyst or mass. The appendix is not visualized; however, there is no evidence of inflammatory process in the right lower quadrant to suggest appendicitis. Small bowel and colonic wall thickening. No acute osseous process. Impression: Hepatomegaly and ascites. Small bowel and colonic fluid levels of edema, may represent enterocolitis versus sequelae of portal venous hypertension. Report Electronically Signed By: Evans Jimenez 07/05/2024 5:10:21 AM [EST]
[2024-07-05 05:27] LABS: C-Reactive Protein > 10.0 mg/dL (0.0-0.9)
[2024-07-05 05:30] LABS: Path Review Blood Smear Sent to Pathologist
== END 2024-07-05 05:56 | disposition home or self-care (01) ==
PROVIDERS: Emergency Provider Emergency Medicine; PCP Internal Medicine
DX: R10.9 Unspecified abdominal pain (principal); E66.9 Obesity, unspecified; Z68.41 Body mass index [BMI] 40.0-44.9, adult; E11.9 Type 2 diabetes mellitus without complications
CPT/HCPCS: 36415; 74176; 76705; 80053; 80307; 80320; 81001; 81025; 82150; 82248; 83605; 83690; 83735; 84145; 84439; 84443; 84703; 85025; 85652; 86140; 87040; 87086; 96361; 96365; 96375; 99285; J0696; J1171; J1885; J2405; J7030; G0480

== ENCOUNTER → 2024-09-16 | Outpatient (CLI) | payer MEDICAID, SELFPAY ==
--- NOTE | 2024-09-16 10:11 | XR_ITS ---
Examination: CT chest with intravenous contrast CT abdomen with intravenous contrast CT pelvis with intravenous contrast CT chest without intravenous contrast CT abdomen without intravenous contrast CT pelvis without intravenous contrast 2-D coronal and sagittal reconstructions Time of exam: September 16, 2024 1040 hours INDICATIONS: Generalized abdominal pain beginning 3 months ago, diagnosis cirrhosis CTDI: vol (mGy) : 25.7 DLP: (mGycm): 2059 Technique: Multiple axial images of the chest, abdomen and pelvis with intravenous contrast, 3.0 mm slice thickness. Images obtained post intravenous injection Isovue 370 60 cc. 2-D sagittal and coronal reconstructions. Low dose protocols were performed. One or more of the following dose reduction techniques were used; automated exposure control, adjustment of the mA and/or KV according to patient size, use of iterative reconstruction technique. Findings: No thoracic aortic aneurysm dilatation or dissection No pulmonary artery filling defects on this non-CTA study 18 mm precarinal lymph node Minimal bilateral hilar lymphadenopathy Moderate vascular congestion Restricted airways disease pattern Cirrhosis, liver irregular in contour Spleen is not enlarged Mild ascites Absent gallbladder No extra hepatic biliary tract dilatation. Common bile duct 7 mm no stones Aorta normal size No hydronephrosis renal or ureteral calculi Mildly fluid distended small bowel loops Normal appendix 16mm right adnexal cyst Atrophic anteverted uterus Contracted urinary bladder with urinary bladder wall thickening Moderate osteopenia, 3 mm L5-S1 lumbar disc IMPRESSION: 18 mm precarinal lymph node, mild bilateral hilar lymphadenopathy, consider 6 month follow-up CT chest with contrast No pneumonia or pulmonary edema Cirrhosis Mild ascites No extrahepatic biliary tract dilatation. Mild small bowel ileus No abdominal or pelvic abscess Cystitis pattern
== END | disposition home or self-care (01) ==
PROVIDERS: PCP Internal Medicine; Referring Provider Internal Medicine; Visit Provider Specialist
DX: R59.0 Localized enlarged lymph nodes (principal); K74.60 Unspecified cirrhosis of liver; K56.7 Ileus, unspecified
CPT/HCPCS: 71270; 74178; A4649; Q9967

== ENCOUNTER 2024-12-30 13:39 | Emergency (ER) | payer MEDICAID, SELFPAY ==
[2024-12-30 13:40] VITALS: BMI 37.8
[2024-12-30 13:58] VITALS: BP 108/71; PULSE 62; RESP 18; TEMP 36.6; O2SAT 99
--- NOTE | 2024-12-30 14:14 | XR_ITS ---
Examination: Foot, left, 3 views Technique: AP, oblique, lateral views foot, 3 views Date and time of exam: 12/30/2024 at 2:16 p.m. INDICATION: Sudden pain in the left foot. COMPARISON: None FINDINGS: Diffuse soft tissue swelling is present. No subcutaneous gas or radiodense foreign body. No fracture, dislocation or evidence of osteomyelitis. Senescent appearance of the foot noted. Calcaneal enthesophytes are present. Posterior talocalcaneal osteoarthrosis is present. IMPRESSION: Soft tissue swelling but no evidence for acute fracture, dislocation or osteomyelitis. Degenerative changes as described.
--- NOTE | 2024-12-30 14:18 | PD.EDANKLE ---
Lower Extremity Injury RME/HPI General Chief Complaint: Ankle/Foot Injury Stated Complaint: LEFT FOOT PAIN SINCE YESTERDAY, DENIES INJURY Time Seen by Provider: 12/30/24 13:57 Source: patient Arrival date/time: 12/30/24 13:39 49-year-old female with a history of hyperlipidemia, type 2 diabetes, hypertension presents to the emergency room with a chief complaint of left ankle pain tenderness x 2 days Mode of arrival: ambulatory Limitations: no limitations Related Data Home Medications ?Medication ?Instructions ?Recorded ?Confirmed lisinopril 20 mg tablet 20 mg PO QDAY #0 tabs 10/10/14 05/19/20 mirtazapine 45 mg tablet 45 mg PO HS ##30 03/24/17 05/19/20 sitagliptin phosphate 100 mg 100 mg PO QDAY ##30 03/24/17 05/19/20 tablet (Januvia) aspirin 81 mg tablet,delayed 81 mg PO QDAY 04/16/18 05/19/20 release (Aspir-Low) atorvastatin 40 mg tablet 80 mg PO QDAY 04/16/18 05/19/20 fluoxetine 20 mg capsule (Prozac) 60 mg PO QDAY 04/16/18 05/19/20 metformin 500 mg tablet,extended 500 mg PO QPM 04/16/18 05/19/20 release 24 hr chlorthalidone 50 mg tablet 50 mg PO QDAY 04/24/18 05/19/20 fluticasone furoate 200 1 inh inhalation QDAY 04/24/18 05/19/20 mcg/actuation blister powder for inhalation (Arnuity Ellipta) levothyroxine 50 mcg tablet 50 mcg PO QDAY 04/24/18 05/19/20 hydrocodone 10 mg-acetaminophen 1 tab PO Q8H PRN Pain 05/19/20 05/19/20 325 mg tablet Previous Rx's ?Medication ?Instructions ?Recorded potassium chloride 20 mEq 20 meq PO QDAY #7 tabs 04/24/18 tablet,extended release(part/cryst) meloxicam 7.5 mg tablet 7.5 mg PO QDAY #30 tabs 07/23/18 fluconazole 150 mg tablet 150 mg PO .x1 #1 tab 12/12/19 (Diflucan) nystatin 100,000 unit/gram topical 1 applic topical BID #60 grams 12/12/19 cream cephalexin 500 mg capsule 500 mg PO QID #28 caps 05/19/20 ibuprofen 800 mg tablet 800 mg PO TID PRN pain #30 tabs 01/23/21 hydrocodone 5 mg-acetaminophen 325 1 tab PO TID PRN pain #10 tabs 09/18/21 mg tablet loperamide 2 mg capsule (Imodium 2 mg PO QID PRN loose stool #10 09/18/21 A-D) caps loperamide 2 mg capsule (Imodium 2 mg PO Q6H PRN loose stool #14 06/29/24 A-D) caps metronidazole 500 mg tablet 500 mg PO BID #10 tabs 06/29/24 metronidazole 500 mg tablet 500 mg PO BID #20 tabs 06/29/24 polyethylene glycol 3350 17 gram 17 g PO BID #30 ea 06/29/24 oral powder packet (Miralax) sulfamethoxazole 800 1 tab PO Q12H #20 tabs 06/29/24 mg-trimethoprim 160 mg tablet (Bactrim DS) hydromorphone 2 mg tablet 2 mg PO .q8 PRN pain #20 tabs 07/05/24 (Dilaudid) Allergies Allergy/AdvReac Type Severity Reaction Status Date / Time morphine AdvReac Severe Palpitation Verified 12/30/24 13:42 s Review of Systems Review of Systems Systems Reviewed: All systems reviewed, normal except as documented Constitutional Constitutional: Reports system reviewed and no additional complaints, except as documented, Denies fatigue, Denies fever(s), Denies headache(s) and Denies weakness Eyes Eyes: Reports system reviewed and no additional complaints, except as documented, Denies blurry vision and Denies change in vision ENT Ears, Nose, Mouth, and Throat: Reports system reviewed and no additional complaints, except as documented, Denies otalgia, Denies headache(s), Denies nasal congestion, Denies throat swelling and Denies vertigo Cardiovascular Cardiovascular: Reports system reviewed and no additional complaints, except as documented, Denies chest pain, Denies dyspnea and Denies dyspnea on exertion Respiratory Respiratory: Reports system reviewed and no additional complaints, except as documented, Denies chest congestion, Denies cough, Denies dyspnea, Denies dyspnea on exertion and Denies wheezing Gastrointestinal Gastrointestinal: Reports system reviewed and no additional complaints, except as documented, Denies abdominal pain, Denies cramping, Denies nausea and Denies vomiting Genitourinary Genitourinary: Reports system reviewed and no additional complaints, except as documented Musculoskeletal Musculoskeletal: Reports system reviewed and no additional complaints, except as documented, Reports arthralgias, Denies back pain and Reports joint swelling Integumentary/Breasts Skin/Breast: Reports system reviewed and no additional complaints, except as documented and Denies wounds Neurologic Neurologic: Reports system reviewed and no additional complaints, except as documented, Denies confusion, Denies headache(s), Denies lack of coordination, Denies vertigo and Denies weakness Psychiatric Psychiatric: Reports system reviewed and no additional complaints, except as documented, Denies anxiety, Denies confusion, Denies depression, Denies paranoia, Denies suicidal ideation and Denies tactile hallucinations Endocrine Endocrine: Reports system reviewed and no additional complaints, except as documented and Denies fatigue Hematologic/Lymphatic Hematologic/Lymphatic: Reports system reviewed and no additional complaints, except as documented and Denies lymphadenopathy Allergic/Immunologic Allergic/Immunologic: Reports system reviewed and no additional complaints, except as documented, Denies throat swelling, Denies urticaria and Denies wheezing Past Medical History Past Medical History NEUROLOGIC: Positive Cerebrovascular Accident and Seizures CARDIAC: Positive Cardiac Disorders, Hypercholesterolemia and Hypertension; Negative Congestive Heart Failure RESPIRATORY: Positive Chronic Obstructive Pulmonary Disease (COPD), Asthma and Sleep Apnea GASTROINTESTINAL: Positive Gall Bladder Disease and Obesity GENITOURINARY: Negative Renal Disease MUSCULOSKELETAL: Positive Arthritis ENDOCRINE: Positive Diabetes Mellitus Type 2; Negative Diabetes Mellitus Type 1 HEMATOLOGIC: Negative Sickle Cell Disease PSYCHO/SOCIAL: Positive Anxiety OTHER HISTORY: Positive Autoimmune Disease Surgical History SURGICAL: Positive Abdominal Surgery, Tubal Ligation and Section Social History SMOKING STATUS: Current every day smoker SUBSTANCE USE: does not use ED Exam General Limitations: Present no limitations General appearance: Present alert and in no apparent distress Head Head exam: Present atraumatic Eye Eye exam: Present normal appearance, PERRL and EOMI ENT ENT exam: Present normal exam, normal oropharynx and mucous membranes moist Neck Neck exam: Present normal inspection, full ROM and trachea midline Chest Chest inspection: Present normal inspection and symmetric chest wall rise Respiratory Respiratory exam: Present normal lung sounds bilaterally Cardiovascular Cardiovascular exam: Present regular rate, normal rhythm and normal heart sounds Abdominal Exam Abdominal exam: Present soft and normal bowel sounds Extremities Exam Extremities exam: Present normal inspection and full ROM Expanded Lower Extremity Exam Hip/Pelvis exam: Present normal inspection Upper leg exam: Present normal inspection Knee exam: Present normal inspection Ankle exam: Present tenderness and swelling Back Exam Back exam: Present normal inspection and full ROM Neurological Exam Neurological exam: Present alert, oriented X3 and CN II-XII intact Psychiatric Psychiatric exam: Present normal affect and normal mood Skin Skin exam: Present warm, dry, intact and normal color Course Quality Measures none Orders Category Date Time Status Crutches .NOW Care 12/30/24 14:43 Active daren wrap [Splint / Immobilizer] STAT Care 12/30/24 14:43 Active XR foot comp LT min 3V Stat Exams 12/30/24 14:14 Completed Vital Signs Vital signs: Vital Signs Temperature 98 F 12/30/24 13:58 Pulse Rate 62 12/30/24 13:58 Respiratory Rate 18 12/30/24 13:58 Blood Pressure 108/71 12/30/24 13:58 Pulse Oximetry (%) 99 12/30/24 13:58 Oxygen Delivery Method Room Air 12/30/24 13:58 Extremity Injury, Lower MDM Narrative MDM Narrative:: 49-year-old female with a history of hyperlipidemia, type 2 diabetes, hypertension presents to the emergency room with a chief complaint of left ankle pain tenderness x 2 days Patient is hemodynamically stable and in no apparent distress Physical examination shows some left-sided ankle tenderness and some mild swelling. The patient has full range of motion to her ankle but states she has difficulty putting weight on it. Patient states she believes she hit it against a cabinet 2 days ago. X-rays of the ankle were completed and were negative for any acute fracture or dislocation An Daren wrap was given to the patient and patient was given crutches Patient was discharged and educated to follow-up with primary care provider in the next 24 to 48 hours and return to the emergency room for any evidence of worsening signs or symptoms Patient data External records reviewed:: [facility] previous records Clinical information provided by:: patient Social determinants that could affect healthcare access:: none Patient has the following chronic illnesses:: No chronic illness How is presenting disease/condition affected by chronic disease/condition?: no chronic disease Evaluation data The following diagnostics were reviewed and interpreted by me:: lab results and radiology exam(s) Lab and/or radiology exams considered but not ordered:: Labs and radiology exams considered and ordered Interpretation Summary: X-ray ankle-FINDINGS: Diffuse soft tissue swelling is present. No subcutaneous gas or radiodense foreign body. No fracture, dislocation or evidence of osteomyelitis. Senescent appearance of the foot noted. Calcaneal enthesophytes are present. Posterior talocalcaneal osteoarthrosis is present. IMPRESSION: Soft tissue swelling but no evidence for acute fracture, dislocation or osteomyelitis. Degenerative changes as described. Medications / Prescriptions Medications or Prescriptions considered but not ordered:: No medication given Medication administrations:: No medication given Consultations Consultation(s) initiated? (list below): No Diagnosis Extremity Injury, Lower Differential Diagnosis: ankle sprain and strain and ankle fracture Most likely diagnosis given after review of the tests above:: Ankle sprain and strain Admission Indicated Admission indicated?: not indicated Admission Request Was there a request for admission?: No Disposition Plan Disposition Plan: Discharge Discharge Attestation Discharge Attestation: The patient and all family members were given an opportunity to ask questions and understood the discharge instructions. Discharge instructions specifically effects, indications for sooner follow up or return to the emergency department, and the expected course of current diagnosis. Patient condition: Stable Discharge Plan Plan Patient Disposition: HOME (Self Care) Discharge Disposition comment: Stable Prescriptions/Referrals Prescriptions/Med Rec: No Action lisinopril 20 MG tablet 20 mg PO QDAY Qty: 0 mirtazapine 45 MG tablet 45 mg PO HS Qty: 30 Januvia 100 MG tablet 100 mg PO QDAY Qty: 30 chlorthalidone 50 mg Tablet 50 mg PO QDAY levothyroxine 50 mcg Tablet 50 mcg PO QDAY Arnuity Ellipta 200 mcg/actuation Blister With Device 1 inh INHALATION QDAY potassium chloride 20 mEq tablet,ER particles/crystals 20 meq PO QDAY Qty: 7 0RF ibuprofen 800 mg tablet 800 mg PO TID PRN (Reason: pain) Qty: 30 0RF atorvastatin 40 mg Tablet 80 mg PO QDAY aspirin [Aspir-Low] 81 mg Tablet,Delayed Release (Dr/Ec) 81 mg PO QDAY fluoxetine [Prozac] 20 mg Capsule 60 mg PO QDAY metformin 500 mg Tablet Extended Release 24 Hr 500 mg PO QPM meloxicam 7.5 mg tablet 7.5 mg PO QDAY Qty: 30 0RF fluconazole [Diflucan] 150 mg tablet 150 mg PO .x1 Qty: 1 0RF nystatin 100,000 unit/gram cream 1 applic topical BID Qty: 60 0RF hydrocodone-acetaminophen [[place]] 10-325 mg Tablet 1 tab PO Q8H PRN (Reason: Pain) cephalexin 500 mg capsule 500 mg PO QID Qty: 28 0RF hydrocodone-acetaminophen 5-325 mg tablet 1 tab PO TID MDD 3 PRN (Reason: pain) Qty: 10 0RF loperamide [Imodium A-D] 2 mg capsule 2 mg PO QID PRN (Reason: loose stool) Qty: 10 0RF Rx Instructions: No more than 8 mg per 24 hour period metronidazole 500 mg tablet 500 mg PO BID Qty: 10 0RF loperamide [Imodium A-D] 2 mg capsule 2 mg PO Q6H PRN (Reason: loose stool) Qty: 14 0RF sulfamethoxazole-trimethoprim [Bactrim DS] 800-160 mg tablet 1 tab PO Q12H Qty: 20 0RF metronidazole 500 mg tablet 500 mg PO BID Qty: 20 0RF polyethylene glycol 3350 [Miralax] 17 gram powder in packet 17 g PO BID Qty: 30 0RF hydromorphone [Dilaudid] 2 mg tablet 2 mg PO .q8 MDD 3 PRN (Reason: pain) Qty: 20 0RF Problem List Clinical Impression: Ankle sprain and strain Patient/Caregiver Discharge Instructions Additional Instructions: Please follow-up with your primary care provider in the next 24 to 48 hours X-rays of your ankle were negative for any acute findings For any evidence of worsening signs or symptoms return to the emergency room immediately Print Language: Bangladeshi Stand Alone Forms: Mami Award Info., Work/School Release, Patient Portal Info Letter PA/RATE EXAMINER Supervising Physician PA/RATE EXAMINER Supervising Physician: Dr. Nino
== END 2024-12-30 16:15 | disposition home or self-care (01) ==
LOC: SERX 15:09
PROVIDERS: Emergency Provider Nurse Practitioner Family; PCP Internal Medicine
DX: S93.402A Sprain of unspecified ligament of left ankle, initial encounter (principal); X58.XXXA Exposure to other specified factors, initial encounter; E78.5 Hyperlipidemia, unspecified; E11.9 Type 2 diabetes mellitus without complications; I10 Essential (primary) hypertension
CPT/HCPCS: 73630; 99282

== ENCOUNTER → 2025-01-17 | Outpatient (CLI) | payer MEDICAID, SELFPAY ==
--- NOTE | 2025-01-17 12:50 | XR_ITS ---
Examination: Bilateral hips, AP pelvis, 5 views Technique: AP, lateral views both hips, AP pelvis, 5 views Exam date and time: January 17, 2025, 1324 hours INDICATIONS: Bilateral hip pain beginning 1 month ago. FINDINGS: No right or left hip fracture or dislocation Mild to moderate bilateral hip joint narrowing Bones of the pelvis intact IMPRESSION: Mild to moderate bilateral hip osteoarthritis
--- NOTE | 2025-01-17 12:50 | XR_ITS ---
Examination: Knee bilateral, 4 views Technique: Knee AP, lateral, each knee total 4 views Date and time of exam: January 17, 2025, 1324 hours INDICATIONS: Bilateral knee pain beginning 1 month ago FINDINGS: Bilateral mild to moderate tricompartment osteoarthritis, most severe involving the medial and patellofemoral joints No fractures No dislocations IMPRESSION: Bilateral mild to moderate tricompartment osteoarthritis
== END | disposition home or self-care (01) ==
LOC: CDIM 12:11
PROVIDERS: PCP Internal Medicine; Referring Provider Internal Medicine; Visit Provider Internal Medicine
DX: M17.0 Bilateral primary osteoarthritis of knee (principal); M16.0 Bilateral primary osteoarthritis of hip
CPT/HCPCS: 73523; 73560

== ENCOUNTER → 2025-02-09 | Outpatient (CLI) | payer MEDICAID, SELFPAY ==
--- NOTE | 2025-02-09 14:15 | XR_ITS ---
Examination: Screening digital mammography, bilateral Computer aided detection 3-D breast Tomosynthesis, bilateral Date and time of exam: February 09, 2025, 1428 hours, no priors Indication: Screening Technique: Nonmagnified MLO, CC views of the breasts to been obtained, reconstructed from 3-D Tomosynthesis images. R2 computer aided detection program utilized for evaluation of suspicious masses and/or abnormal calcifications. 3-D Tomosynthesis images obtained. Findings: Scattered areas of fibroglandular density. Enlarged left axillary lymph node Benign calcifications Impression: BI-RADS Category 0: Incomplete: Need additional imaging evaluation Enlarged left axillary lymph node, recommend bilateral breast sonography follow-up
== END | disposition home or self-care (01) ==
LOC: CDIM 14:18
PROVIDERS: PCP Internal Medicine; Referring Provider Internal Medicine; Visit Provider Internal Medicine
DX: Z12.31 Encounter for screening mammogram for malignant neoplasm of breast (principal); R59.0 Localized enlarged lymph nodes; R92.8 Other abnormal and inconclusive findings on diagnostic imaging of breast
CPT/HCPCS: 77063; 77067